=== PATIENT | female | born 1970 | race African-American/Black ===

== ENCOUNTER 2025-03-16 18:06 | Inpatient (IN) | payer MEDICAID ==
[~2025-03-16] VITALS: Ht 160 cm; Wt 73.7 kg
[2025-03-16] MEDS ORDERED: MORPHINE SULFATE 4 MG/1 ML DISP.SYRIN ONE (19:35)
[2025-03-16] MEDS: MORPHINE SULFATE 2 MG/1 ML DISP.SYRIN IV ONE (19:41)
[2025-03-16] MEDS: IV NORMAL SALINE 1000 ML BAG IV ONE (19:41)
[2025-03-16] MEDS: ONDANSETRON 4 MG/2 ML VIAL IV ONE (19:41)
[2025-03-16 19:43] LABS: *BILIRUBIN,URIN NEGATIVE (NEGATIVE); *BLOOD, URINE NEGATIVE (NEGATIVE); *CLARITY,URINE CLEAR (CLEAR); *COLOR,URINE YELLOW (YELLOW); *KETONES,URINE 2+ (NEGATIVE); *PROTEIN,URINE 1+ (NEGATIVE); *UROBILINOGEN,URINE 1.0 E.U./dl (NORMAL); LEUKOCYTE ESTERASE ,URINE NEGATIVE (NEGATIVE); NITRITE, URINE NEGATIVE (NEGATIVE); UGLUCOSE NEGATIVE (NEGATIVE)
[2025-03-16 19:43] LABS: PLATELET COUNT (AUTO) 220 K/uL (179-408); RED BLOOD CELL COUNT(AUTO) 4.41 MIL/uL (3.63-4.92); RED CELL DISTRIBUTION WIDTH 16.4 % (12.3-17.7); WHITE BLOOD COUNT (AUTO) 5.7 K/uL (3.8-11.8)
[2025-03-16 19:53] LABS: SQUAMOUS EPITHELIAL CELL,UR FEW /HPF (NONE SEEN)
[2025-03-16 19:58] LABS: ASPARTATE AMINOTRANSFERASE 33 U/L (15-37); CREATININE 0.2 mg/dL (0.6-1.3); SODIUM SERUM 147 mmol/L (136-145); TOTAL PROTEIN, SERUM 4.5 g/dL (6.4-8.2); UREA NITROGEN, BLOOD 5 mg/dL (7-18)
[2025-03-16] MEDS: CALCIUM GLUCONATE IV 1 GM in IV DEXTROSE 5% 50 ML IV ONE (20:15)
[2025-03-16] MEDS: IV D5W-0.45% NS +20 KCL 1,000 ML IV ONE (20:15)
[2025-03-16] MEDS: POTASSIUM CHLORIDE 20 MEQ TAB.PRT.SR PO ONE ×2 (20:15→23:45)
[2025-03-16] MEDS ORDERED: MAGNESIUM SULFATE 1 GM/2 ML VIAL ONE (21:17)
[2025-03-16] MEDS ORDERED: CALCIUM GLUCONATE 1 GM/10 ML VIAL IV ONE (21:17)
[2025-03-16] MEDS: MAGNESIUM SULFATE 2 GM in IV DEXTROSE 5% 100 ML IV ONE (21:45)
[2025-03-16] MEDS ORDERED: REMEDY ESSENTIAL ZINC PASTE 113 GM TP PRN (22:00)
[2025-03-16] MEDS ORDERED: IV NS 1000 ML 1,000 ML IV PRN (22:00)
[2025-03-16 22:45] VITALS: BP 171/102
[2025-03-16 23:18] VITALS: BP 176/105; TEMP 97.8; O2SAT 94
[2025-03-16] MEDS ORDERED: METRONIDAZOLE 500 MG/NS 100ML 200 ML IV ONE (23:25)
[2025-03-16] MEDS: IV D5 1/2 NS 1000 ML 1,000 ML IV PRN (23:35)
[2025-03-16] MEDS: MAGNESIUM SULFATE/D5W 100 ML IV SCH (23:36)
[2025-03-16] MEDS: MORPHINE SULFATE 2 MG/1 ML DISP.SYRIN IV PRN (23:36)
[2025-03-16] MEDS ORDERED: POTASSIUM CHLORIDE 20 MEQ TAB.PRT.SR ONE (23:39)
[2025-03-16] MEDS: METRONIDAZOLE 500 MG/NS 100ML 500 MG in PREMIXED 1 EACH IV SCH (23:48)
[2025-03-17 00:32] VITALS: BP 172/104; TEMP 97.8; O2SAT 97
[2025-03-17 04:55] VITALS: BP 158/94; TEMP 97.6; O2SAT 98
[2025-03-17 07:42] LABS: PLATELET COUNT (AUTO) 216 K/uL (179-408); RED BLOOD CELL COUNT(AUTO) 4.03 MIL/uL (3.63-4.92); RED CELL DISTRIBUTION WIDTH 16.2 % (12.3-17.7); WHITE BLOOD COUNT (AUTO) 5.0 K/uL (3.8-11.8)
[2025-03-17 07:46] VITALS: BP 148/93; TEMP 97.8; O2SAT 98
[2025-03-17 08:00] LABS: CREATININE 0.7 mg/dL (0.6-1.3); SODIUM SERUM 140.0 mmol/L (136-145); UREA NITROGEN, BLOOD 5.0 mg/dL (7-18)
[2025-03-17] MEDS ORDERED: IBUP1TAB68 PO (09:41)
[2025-03-17] MEDS: ACETAMINOPHEN 325 MG TABLET PO PRN (11:05)
[2025-03-17 12:00] VITALS: BP 163/104; TEMP 97.8; O2SAT 98
[2025-03-17 16:16] VITALS: BP 161/104; TEMP 97.7; O2SAT 98
[2025-03-17] MEDS: ONDANSETRON 4 MG/2 ML VIAL IV PRN (18:09)
[2025-03-17 19:00] VITALS: BP 167/100; TEMP 99.1; O2SAT 99
[2025-03-17] MEDS: METOPROLOL TARTRATE 25 MG TABLET PO SCH (20:15)
[2025-03-17] MEDS ORDERED: DOCUSATE SODIUM 100 MG CAPSULE PO PRN (23:30)
[2025-03-18] MEDS ORDERED: MAGNESIUM HYDROXIDE 30 ML LIQUID UDC PO PRN (05:45)
[2025-03-18 07:17] LABS: PLATELET COUNT (AUTO) 215 K/uL (179-408); RED BLOOD CELL COUNT(AUTO) 4.31 MIL/uL (3.63-4.92); RED CELL DISTRIBUTION WIDTH 16.2 % (12.3-17.7); WHITE BLOOD COUNT (AUTO) 5.9 K/uL (3.8-11.8)
[2025-03-18 07:45] LABS: ASPARTATE AMINOTRANSFERASE 28.0 U/L (15-37); CREATININE 0.8 mg/dL (0.6-1.3); SODIUM SERUM 141.0 mmol/L (136-145); TOTAL PROTEIN, SERUM 6.4 g/dL (6.4-8.2); UREA NITROGEN, BLOOD 4.0 mg/dL (7-18)
[2025-03-18 10:54] VITALS: BP 154/102; TEMP 98; O2SAT 98
[2025-03-18 15:15] VITALS: BP 149/96; TEMP 97.6; O2SAT 100
[2025-03-18 19:00] VITALS: BP 175/119; TEMP 97.7; O2SAT 93
[2025-03-19 04:00] VITALS: BP 139/85; TEMP 97.7; O2SAT 96
[2025-03-19 06:46] LABS: PLATELET COUNT (AUTO) 204 K/uL (179-408); RED BLOOD CELL COUNT(AUTO) 3.98 MIL/uL (3.63-4.92); RED CELL DISTRIBUTION WIDTH 16.0 % (12.3-17.7); WHITE BLOOD COUNT (AUTO) 6.2 K/uL (3.8-11.8)
[2025-03-19 06:53] LABS: CREATININE 0.6 mg/dL (0.6-1.3); SODIUM SERUM 138.0 mmol/L (136-145); UREA NITROGEN, BLOOD 5.0 mg/dL (7-18)
[2025-03-19 10:31] VITALS: BP 147/97; TEMP 97.5; O2SAT 99
[2025-03-19] MEDS ORDERED: LEVO500T90 PO (12:13)
[2025-03-19] MEDS ORDERED: METR500T PO (12:13)
[2025-03-19] MEDS ORDERED: ACID1TAB4 PO (12:13)
[2025-03-19] MEDS ORDERED: METO25TA6 PO (12:13)
[2025-03-19] MEDS: METRONIDAZOLE 500 MG TABLET PO SCH (14:21)
[2025-03-19 16:02] VITALS: BP 134/83; TEMP 97.8; O2SAT 96
== END 2025-03-19 16:25 | disposition home or self-care (01) | DRG 247 ==
LOC: ER 18:06 → TELE3 22:34 → MEDSURG3 03-17 22:15
PROVIDERS: ADMIT Internal Medicine; ATTEND Internal Medicine
DX: K56.600 Partial intestinal obstruction, unspecified as to cause (principal); E43 Unspecified severe protein-calorie malnutrition; A04.9 Bacterial intestinal infection, unspecified; E87.6 Hypokalemia; K76.0 Fatty (change of) liver, not elsewhere classified; E83.42 Hypomagnesemia; D75.89 Other specified diseases of blood and blood-forming organs; E66.9 Obesity, unspecified; I10 Essential (primary) hypertension; Z87.891 Personal history of nicotine dependence; Z68.28 Body mass index [BMI] 28.0-28.9, adult; K80.20 Calculus of gallbladder without cholecystitis without obstruction; Z90.711 Acquired absence of uterus with remaining cervical stump
CPT/HCPCS: 36415; 76705; 83690; 83735; 84100; 85025; 85730; 87086; 93005; 93307; A4606; A4663; G0378; J0612; J1956; J2270; J2405; J3475; J3490; J7040

== ENCOUNTER 2025-03-25 11:53 | Emergency (ER) | payer MEDICAID ==
[~2025-03-25] VITALS: Ht 160 cm; Wt 70.3 kg
[~2025-03-25 11:53] MED LIST: ACID1TAB4 PO; IBUP1TAB68 PO; LEVO500T90 PO; METO25TA6 PO; METR500T PO
[2025-03-25 12:22] LABS: *BILIRUBIN,URIN NEGATIVE (NEGATIVE); *BLOOD, URINE NEGATIVE (NEGATIVE); *COLOR,URINE YELLOW (YELLOW); *KETONES,URINE 2+ (NEGATIVE); *PROTEIN,URINE 2+ (NEGATIVE); *UROBILINOGEN,URINE 0.2 E.U./dl (NORMAL); LEUKOCYTE ESTERASE ,URINE NEGATIVE (NEGATIVE); NITRITE, URINE NEGATIVE (NEGATIVE); UGLUCOSE NEGATIVE (NEGATIVE)
[2025-03-25 12:27] LABS: *CLARITY,URINE SLIGHTLY CLOUDY (CLEAR)
[2025-03-25] MEDS ORDERED: ONDANSETRON 4 MG/2 ML VIAL ONE ×3 (12:28→19:49)
[2025-03-25] MEDS ORDERED: HYDROMORPHONE 1 MG/1 ML DISP.SYRIN ONE ×3 (12:28→19:49)
[2025-03-25] MEDS: IV NORMAL SALINE 1000 ML BAG IV ONE (12:35)
[2025-03-25 12:40] LABS: SQUAMOUS EPITHELIAL CELL,UR MODERATE /HPF (NONE SEEN); URINE AMORPHOUS URATE FEW /HPF
[2025-03-25] MEDS: ONDANSETRON 4 MG/2 ML VIAL IV ONE ×3 (12:42→19:50)
[2025-03-25] MEDS: HYDROMORPHONE 1 MG/1 ML DISP.SYRIN IV ONE ×3 (12:42→19:50)
[2025-03-25 12:44] LABS: PLATELET COUNT (AUTO) 327 K/uL (179-408); RED BLOOD CELL COUNT(AUTO) 4.20 MIL/uL (3.63-4.92); RED CELL DISTRIBUTION WIDTH 15.9 % (12.3-17.7); WHITE BLOOD COUNT (AUTO) 7.1 K/uL (3.8-11.8)
[2025-03-25 12:54] LABS: ASPARTATE AMINOTRANSFERASE 30.0 U/L (15-37); CREATININE 1.4 mg/dL (0.6-1.3); SODIUM SERUM 143.0 mmol/L (136-145); TOTAL PROTEIN, SERUM 7.3 g/dL (6.4-8.2); UREA NITROGEN, BLOOD 11.0 mg/dL (7-18)
[2025-03-25] MEDS ORDERED: IOHEXOL 300MG/ML 100 ML INFUS..BTL ONE (13:28)
[2025-03-25] MEDS ORDERED: SWABABLE VALVE TRANSFER SET EA MC ONE (13:28)
[2025-03-25] MEDS ORDERED: IV NORMAL SALINE 250 ML IV ONE (13:30)
[2025-03-25] MEDS ORDERED: MAGNESIUM SULFATE/D5W 100 ML ONE ×2 (14:47→15:34)
[2025-03-25] MEDS ORDERED: LIDOCAINE 2% (GLYDO= UROJET) 10 ML JELLY MM ONE (14:48)
[2025-03-25] MEDS ORDERED: CYANOCOBALAMIN 1000 MCG/ML VIAL ONE (14:48)
[2025-03-25] MEDS: CYANOCOBALAMIN 1000 MCG/ML VIAL IM ONE (14:54)
[2025-03-25] MEDS: LIDOCAINE 2% (GLYDO= UROJET) 10 ML JELLY MM ONE (15:06)
[2025-03-25] MEDS: MAGNESIUM SULFATE/D5W 100 ML IV SCH (15:06)
[2025-03-25] MEDS ORDERED: MAGNESIUM SULFATE/D5W 200 ML ONE (17:22)
[2025-03-25] MEDS ORDERED: IV NS 1000 ML 1,000 ML IV PRN (18:30)
[2025-03-25] MEDS ORDERED: HYDROMORPHONE 1 MG/1 ML DISP.SYRIN IV PRN (18:30)
[2025-03-25] MEDS ORDERED: MAGNESIUM HYDROXIDE 30 ML LIQUID UDC PO PRN (18:30)
[2025-03-25] MEDS ORDERED: LORAZEPAM 2 MG/1 ML VIAL IV PRN ×2 (18:30→19:00)
[2025-03-25] MEDS ORDERED: ACETAMINOPHEN 325 MG TABLET PO PRN (18:30)
[2025-03-25] MEDS ORDERED: REMEDY ESSENTIAL ZINC PASTE 113 GM TP PRN (18:30)
[2025-03-25] MEDS ORDERED: LORAZEPAM 2 MG/1 ML VIAL ONE (18:45)
[2025-03-25] MEDS ORDERED: METOPROLOL TARTRATE 25 MG TABLET PO SCH (21:00)
[2025-03-25] MEDS ORDERED: METRONIDAZOLE 500 MG/NS 100ML 500 MG in PREMIXED 1 EACH IV SCH (22:00)
[2025-03-26] MEDS ORDERED: MORPHINE SULFATE 2 MG/1 ML DISP.SYRIN IV ONE (04:45)
[2025-03-26] MEDS ORDERED: HYDROMORPHONE 1 MG/1 ML DISP.SYRIN IV ONE ×2 (04:45→05:00)
[2025-03-26] MEDS ORDERED: HYDROMORPHONE 1 MG/1 ML DISP.SYRIN ONE (05:02)
[2025-03-26] MEDS: HYDROMORPHONE 1 MG/1 ML DISP.SYRIN IV ONE (05:09)
[2025-03-26 08:20] VITALS: BP 139/84; O2SAT 96
[2025-03-26] MEDS ORDERED: DIATR MEGLU/DIATRIZOATE SODIUM 30 ML BOTTLE ONE (09:42)
[2025-03-26] MEDS ORDERED: MORPHINE SULFATE 2 MG/1 ML DISP.SYRIN ONE (13:30)
[2025-03-26] MEDS: MORPHINE SULFATE 2 MG/1 ML DISP.SYRIN IV ONE (13:30)
[2025-03-26] MEDS ORDERED: ONDANSETRON 4 MG/2 ML VIAL ONE (13:44)
[2025-03-26] MEDS: ONDANSETRON 4 MG/2 ML VIAL IV ONE (13:44)
[2025-03-26] MEDS: IV NORMAL SALINE 1000 ML BAG IV ONE (15:00)
[2025-03-26 15:06] LABS: PLATELET COUNT (AUTO) 287 K/uL (179-408); RED BLOOD CELL COUNT(AUTO) 3.99 MIL/uL (3.63-4.92); RED CELL DISTRIBUTION WIDTH 16.1 % (12.3-17.7); WHITE BLOOD COUNT (AUTO) 5.3 K/uL (3.8-11.8)
[2025-03-26 15:16] LABS: CREATININE 0.6 mg/dL (0.6-1.3); SODIUM SERUM 142.0 mmol/L (136-145); UREA NITROGEN, BLOOD 5.0 mg/dL (7-18)
[2025-03-26] MEDS: METRONIDAZOLE 500 MG/NS 100 ML PIGGYBACK IV ONE (16:43)
[2025-03-26] MEDS ORDERED: METRONIDAZOLE 500 MG/NS 100ML 100 ML IV ONE (16:43)
[2025-03-26] MEDS ORDERED: CEFTRIAXONE /D5W 50ML IVPB **ER PYXIS IV ONE (16:43)
[2025-03-26] MEDS: CEFTRIAXONE 500 MG VIAL IV ONE (16:43)
== END 2025-03-26 19:11 | disposition left against medical advice (07) ==
LOC: ER 11:53 → MEDSURG3 18:26 → UNDOADMIN 18:26 → ER 03-26 19:11
DX: K56.609 Unspecified intestinal obstruction, unspecified as to partial versus complete obstruction (principal); E83.42 Hypomagnesemia; Z90.711 Acquired absence of uterus with remaining cervical stump
CPT/HCPCS: 99285; 74177; 96365; 96366; 96375; 96361; 80076; 80048 ×2; 81001; 82607; 83735 ×2; 85025 ×2; 87086; 36415 ×2; 96376; 96372; 76856; 74018; J3420; J1956 ×2; J2060; J3475 ×3; J3490 ×2; J2405 ×4; Q9967; J1171 ×4; J7040 ×2; J0696; J2270; A4606; A4663; Q9963